=== PATIENT | female | born 2000 | race Hispanic/Latino ===

== ENCOUNTER 2024-07-06 11:24 | Emergency (ER) | payer OTHER ==
[~2024-07-06] VITALS: Ht 160 cm; Wt 58.1 kg
[2024-07-06 11:30] VITALS: PULSE 115; RESP 16; TEMP 98.6
[2024-07-06] MEDS ORDERED: IOPAMIDOL 370 MG/ML 100 ML INFUS..BTL INJ ONE (11:48)
[2024-07-06] MEDS: KETOROLAC TROMETHAMINE 30 MG/ML VIAL IV STA (12:23)
[2024-07-06] MEDS: ONDANSETRON HCL INJ 2MG/ML 2ML 2 MG/ML VIAL IV STA (12:23)
[2024-07-06] MEDS: FAMOTIDINE 20 MG/2 ML VIAL IV STA (12:23)
[2024-07-06] MEDS: SODIUM CHLORIDE 0.9% 1000ML 1,000 ML IV ONE (12:24)
[2024-07-06] MEDS ORDERED: OMEPRAZOLE40 MG PO (13:56)
[2024-07-06] MEDS ORDERED: ONDANSETRON ODT4 MG PO (13:56)
[2024-07-06] MEDS ORDERED: MACROBID 100 M100 MG PO (14:04)
[2024-07-06 14:12] VITALS: BP 113/67; PULSE 106; RESP 16; O2SAT 99
== END 2024-07-06 14:10 | disposition home or self-care (01) ==
LOC: FSED 11:31
DX: R11.2 Nausea with vomiting, unspecified (principal); K29.70 Gastritis, unspecified, without bleeding; R10.13 Epigastric pain; K59.00 Constipation, unspecified
CPT/HCPCS: 74177; 80048; 81003; 81025; 85025; 99283; J1885; J2405; J7030; Q9967